=== PATIENT | female | born 1985 | race Hispanic/Latino ===

== ENCOUNTER 2020-03-06 12:22 | Inpatient (IN) | payer BC, MEDICAID ==
[~2020-03-06] VITALS: Ht 157.5 cm; Wt 64.4 kg
[2020-03-06 14:12] LABS: APPEARANCE,URINE Clear (CLEAR); BILIRUBIN,URINE Negative (NEGATIVE); COLOR,URINE Dark Yellow (YELLOW); GLUCOSE, URINE (UA) Negative (NEGATIVE); KETONES,URINE 40 mg/dL (NEGATIVE); LEUKOCYTE ESTERASE ,URINE Trace (NEGATIVE); NITRATE,URINE Negative (NEGATIVE); OCCULT BLOOD,URINE Negative (NEGATIVE); PROTEIN,URINE Negative (NEGATIVE)
[2020-03-06 14:43] LABS: BACTERIA,URINE Few /HPF (None Seen)
[2020-03-06 14:44] LABS: MUCUS,URINE Few LPF (None Seen); SQUAMOUS EPITHELIAL CELL,UR 0-2 /HPF (0-2)
[2020-03-06] MEDS: CELESTONE SOLUSPAN 6 MG/ML 5ML VIAL IM SCH (15:30)
[2020-03-06] MEDS ORDERED: MAGNESIUM 4GM PREMIX 100ML 100 ML IV SCH (15:30)
[2020-03-06] MEDS ORDERED: CALCIUM GLUCONATE 1 GM/10 ML VIAL IV PRN (15:30)
[2020-03-06] MEDS ORDERED: OXYTOCIN-LR 20 UNITS/1000 ML 1,000 ML IV SCH (15:30)
[2020-03-06] MEDS ORDERED: MAGNESIUM 4GM PREMIX 100ML 100 ML IV ONE (15:41)
[2020-03-06] MEDS ORDERED: MAGNESIUM SULFATE 1,000 ML IV ONE (15:41)
[2020-03-06] MEDS ORDERED: CELESTONE SOLUSPAN 6 MG/ML 5ML VIAL ONE (15:43)
[2020-03-06 16:12] LABS: HEMATOCRIT 28.7 % (36-48); MEAN CORPUSCULAR HEMOGLOBIN 32.7 pg (27.0-33.0); MEAN CORPUSCULAR HGB CONC 34.1 g/dL (32.0-36.0); MEAN CORPUSCULAR VOLUME 95.7 fL (79-99); PLATELET COUNT (AUTO) 225 K/uL (130-400); RED CELL DISTRIBUTION WIDTH 13.2 % (11.0-15.5); WHITE BLOOD COUNT (AUTO) 12.9 K/uL (4.8-10.8)
[2020-03-06 16:22] LABS: AMPHET/METH SCREEN,URINE NEGATIVE (NEGATIVE); BARBITURATE SCREEN, URINE NEGATIVE (NEGATIVE); BENZODIAZEPINES SCREEN,URINE NEGATIVE (NEGATIVE); CANNABINOID SCREEN,URINE NEGATIVE (NEGATIVE); COCAINE SCREEN,URINE NEGATIVE (NEGATIVE); OPIATE SCREEN,URINE NEGATIVE (NEGATIVE); PHENCYCLIDINE SCREEN,URINE NEGATIVE (NEGATIVE)
[2020-03-06] MEDS ORDERED: AMPICILLIN 2GM+NS 100ML 100 ML IV ONE (18:18)
[2020-03-06 19:30] VITALS: BP 110/62
[2020-03-07] MEDS: LACTATED RINGERS 1000ML 1,000 ML IV PRN (05:00)
[2020-03-07] MEDS: AMPICILLIN 2GM+NS 100ML 100 ML IV SCH ×5 (06:30→23:56)
[2020-03-07 07:57] LABS: RAPID PLASMA REAGIN NONREACTIVE (NONREACTIVE)
[2020-03-07 11:34] LABS: BASOPHILS % (AUTO) 0.1 % (0.0-5.0); HEMATOCRIT 27.8 % (36-48); LYMPHOCYTES % (AUTO) 5.2 % (21.0-51.0); MEAN CORPUSCULAR HEMOGLOBIN 32.4 pg (27.0-33.0); MEAN CORPUSCULAR HGB CONC 34.2 g/dL (32.0-36.0); MEAN CORPUSCULAR VOLUME 94.9 fL (79-99); PLATELET COUNT (AUTO) 247 K/uL (130-400); RED BLOOD CELL COUNT(AUTO) 2.93 MIL/uL (4.00-5.50); WHITE BLOOD COUNT (AUTO) 16.6 K/uL (4.8-10.8)
[2020-03-07] MEDS: CELESTONE SOLUSPAN 6 MG/ML 5ML VIAL IM SCH (15:30)
--- NOTE | 2020-03-07 19:30 | NUR ---
TEDS & knee hi SCD's in place due to complete bedrest Addendum: 03/08/20 at 0039 by JEWEL PALMER RN RN Amended: Links added.
[2020-03-08] MEDS: AMPICILLIN 2GM+NS 100ML 100 ML IV SCH ×4 (05:52→17:30)
[2020-03-08] MEDS: LACTATED RINGERS 1000ML 1,000 ML IV PRN (06:00)
[2020-03-08 06:10] LABS: BASOPHILS % (AUTO) 0.1 % (0.0-5.0); HEMATOCRIT 25.7 % (36-48); LYMPHOCYTES % (AUTO) 3.5 % (21.0-51.0); MEAN CORPUSCULAR HEMOGLOBIN 31.9 pg (27.0-33.0); MEAN CORPUSCULAR HGB CONC 34.2 g/dL (32.0-36.0); MEAN CORPUSCULAR VOLUME 93.1 fL (79-99); MONOCYTES % (AUTO) 4.6 % (3.0-13.0); NEUTROPHILS % (AUTO) 91.1 % (40.0-77.0); PLATELET COUNT (AUTO) 228 K/uL (130-400); RED BLOOD CELL COUNT(AUTO) 2.76 MIL/uL (4.00-5.50); RED CELL DISTRIBUTION WIDTH 13.2 % (11.0-15.5); WHITE BLOOD COUNT (AUTO) 15.3 K/uL (4.8-10.8)
[2020-03-08 08:10] LABS: HEPATITIS Bs ANTIGEN SCREEN P Negative (Negative)
[2020-03-08] MEDS ORDERED: ACETAMINOPHEN EXTRA STRENGTH 500 MG TABLET ONE (20:46)
[2020-03-09] MEDS: AMPICILLIN 2GM+NS 100ML 100 ML IV SCH ×4 (00:08→23:42)
[2020-03-09] MEDS: LACTATED RINGERS 1000ML 1,000 ML IV PRN (06:13)
[2020-03-09] MEDS: ACETAMINOPHEN EXTRA STRENGTH 500 MG TABLET PO PRN ×2 (12:14→22:59)
[2020-03-10] MEDS: AMPICILLIN 2GM+NS 100ML 100 ML IV SCH
[2020-03-10] MEDS: MAGNESIUM SULFATE 1,000 ML IV PRN (01:30)
[2020-03-10] MEDS: LACTATED RINGERS 1000ML 1,000 ML IV PRN ×2 (01:30→05:49)
[2020-03-10] MEDS ORDERED: BISACODYL 10 MG SUPP.RECT RC SCH (09:15)
[2020-03-11] MEDS: AMPICILLIN 2GM+NS 100ML 100 ML IV SCH ×2 (05:55→23:57)
[2020-03-11 08:21] LABS: BASOPHILS % (AUTO) 0.2 % (0.0-5.0); EOSINOPHILS % (AUTO) 0.7 % (0.0-8.0); HEMATOCRIT 25.2 % (36-48); LYMPHOCYTES % (AUTO) 16.1 % (21.0-51.0); MEAN CORPUSCULAR HEMOGLOBIN 31.8 pg (27.0-33.0); MEAN CORPUSCULAR HGB CONC 32.9 g/dL (32.0-36.0); MEAN CORPUSCULAR VOLUME 96.6 fL (79-99); MONOCYTES % (AUTO) 7.4 % (3.0-13.0); NEUTROPHILS % (AUTO) 74.1 % (40.0-77.0); PLATELET COUNT (AUTO) 231 K/uL (130-400); RED BLOOD CELL COUNT(AUTO) 2.61 MIL/uL (4.00-5.50); RED CELL DISTRIBUTION WIDTH 13.4 % (11.0-15.5); WHITE BLOOD COUNT (AUTO) 9.4 K/uL (4.8-10.8)
[2020-03-11] MEDS ORDERED: HYDROXYPROGESTERONE CAPROATE MISC SCH (12:30)
[2020-03-11] MEDS: LACTATED RINGERS 1000ML 1,000 ML IV PRN (23:57)
[2020-03-12] MEDS: AMPICILLIN 2GM+NS 100ML 100 ML IV SCH ×3 (05:57→18:02)
[2020-03-12 09:09] LABS: BASOPHILS % (AUTO) 0.3 % (0.0-5.0); EOSINOPHILS % (AUTO) 0.7 % (0.0-8.0); HEMATOCRIT 27.9 % (36-48); LYMPHOCYTES % (AUTO) 12.5 % (21.0-51.0); MEAN CORPUSCULAR HEMOGLOBIN 31.8 pg (27.0-33.0); MEAN CORPUSCULAR HGB CONC 33.3 g/dL (32.0-36.0); MEAN CORPUSCULAR VOLUME 95.5 fL (79-99); MONOCYTES % (AUTO) 5.8 % (3.0-13.0); NEUTROPHILS % (AUTO) 79.3 % (40.0-77.0); PLATELET COUNT (AUTO) 315 K/uL (130-400); RED BLOOD CELL COUNT(AUTO) 2.92 MIL/uL (4.00-5.50); RED CELL DISTRIBUTION WIDTH 13.1 % (11.0-15.5)
[2020-03-12] MEDS: FERROUS FUMARATE 324 MG TABLET PO SCH ×2 (11:27→21:08)
[2020-03-12] MEDS: PRENATAL VITAMIN RX TABLET PO SCH (11:27)
[2020-03-12] MEDS: MAGNESIUM SULFATE 1,000 ML IV PRN (11:28)
[2020-03-12 22:24] LABS: HEMATOCRIT 30.3 % (36-48)
[2020-03-13] MEDS: AMPICILLIN 2GM+NS 100ML 100 ML IV SCH ×2 (00:05→06:03)
[2020-03-13] MEDS: MAGNESIUM SULFATE 1,000 ML IV PRN (07:43)
[2020-03-13] MEDS: FERROUS FUMARATE 324 MG TABLET PO SCH (08:43)
[2020-03-13] MEDS: PRENATAL VITAMIN RX TABLET PO SCH (08:43)
[2020-03-13] MEDS ORDERED: OXYTOCIN-LR 20 UNITS/1000 ML 1,000 ML IV ONE (11:22)
[2020-03-13] MEDS ORDERED: OXYTOCIN-LR 20 UNITS/1000 ML 1,000 ML IV SCH ×3 (11:30→12:45)
[2020-03-13] MEDS ORDERED: OXYTOCIN 10 USP UNITS/ML 20 UNIT in LACTATED RINGERS 1000ML 1,000 ML IV SCH (11:30)
[2020-03-13] MEDS ORDERED: LIDOCAINE HCL 1% 20 ML VIAL INJ PRN (11:30)
[2020-03-13] MEDS ORDERED: METHYLERGONOVINE MALEATE 0.2 MG/1 ML ML ONE (11:41)
[2020-03-13 14:57] VITALS: BP 111/74
[2020-03-13] MEDS ORDERED: PREN-154 PO (15:08)
[2020-03-13] MEDS ORDERED: DIPH,PERTUSS(ACELL),TET VAC/PF 0.5 ML VIAL IM ONE (15:22)
[2020-03-13] MEDS: ACETAMINOPHEN EXTRA STRENGTH 500 MG TABLET PO PRN (15:28)
--- NOTE | 2020-03-13 19:00 | NUR ---
DISCHARGE PT LEFT UNIT VIA WHEELCHAIR, ACCOMPANIED BY SIGNIFICANT OTHER. DENIED PAIN AND HAD NO COMPLAINTS. TRANSPORTED BY PERSONAL VEHICLE.
[2020-03-18] MEDS ORDERED: HYDROXYPROGESTERONE CAPROATE IM SCH (09:00)
== END 2020-03-13 17:00 | disposition home or self-care (01) | DRG 807 ==
LOC: LDH 12:22 → OBSVTOIN 15:20 → LDH 19:00 → WSH 03-13 14:54
PROC: 30233N1 Transfusion of Nonautologous Red Blood Cells into Peripheral Vein, Percutaneous Approach (ICD-10-PCS; 2020-03-12)
PROC: 3E0234Z Introduction of Serum, Toxoid and Vaccine into Muscle, Percutaneous Approach (ICD-10-PCS; principal; 2020-03-13)
PROC: 10E0XZZ Delivery of Products of Conception, External Approach (ICD-10-PCS; 2020-03-13)
DX: O42.112 Preterm premature rupture of membranes, onset of labor more than 24 hours following rupture, second trimester (principal); Z37.0 Single live birth; Z23 Encounter for immunization; Z3A.26 26 weeks gestation of pregnancy; Z20.828 Contact with and (suspected) exposure to other viral communicable diseases
CPT/HCPCS: 36415; 76805; 80305; 81001; 83735; 85014; 85018; 85025; 85027; 86592; 86701; 86850; 86900; 86901; 86922; 87070; 87076; 87077; 87186; 87340; 87390; 87633; 87635; 87804; 90715; A4314; A4351; A4606; G0378; J0290; J0702; J2210; J2590; J3475; J7120; P9016